=== PATIENT | male | born 1990 ===

== ENCOUNTER 2019-11-15 18:11 | Emergency (ER) | payer SELFPAY ==
[~2019-11-15] VITALS: Ht 167.6 cm; Wt 77.1 kg
[2019-11-15 19:38] LABS: Source, Urine Clean Catch
[2019-11-15 19:45] LABS: Appearance, Urine Clear (Clear); Bilirubin, Urine Neg (Neg); Blood, Urine Neg (Neg); Color, Urine Yellow (P-Yellow); Glucose Qualitative, Urine Neg (Neg); Ketones, Urine Neg (Neg); Leukocyte Esterase, Urine Neg (Neg); Nitrite, Urine Neg (Neg); Protein, Urine Neg (Neg); Specific Gravity, Urine 1.025 (1.003-1.022); Urobilinogen, Urine NORM (Normal)
[2019-11-15] MEDS ORDERED: IBUP800 PO (21:01)
== END 2019-11-15 21:27 | disposition home or self-care (01) ==
LOC: ER 18:11
PROVIDERS: Physician Assistant
DX: S39.011A Strain of muscle, fascia and tendon of abdomen, initial encounter (principal); S76.911A Strain of unspecified muscles, fascia and tendons at thigh level, right thigh, initial encounter; X58.XXXA Exposure to other specified factors, initial encounter
CPT/HCPCS: 76870; 81003; 99284-25